=== PATIENT | male | born 1995 | race African-American/Black ===

== ENCOUNTER 2019-12-01 16:34 | Emergency (ER) | payer MEDICAID ==
[~2019-12-01] VITALS: Ht 180.3 cm; Wt 79.0 kg
[2019-12-01 16:50] VITALS: BP 137/82
[2019-12-01] MEDS ORDERED: IBUPROFEN 600MG TABLET PO ONE (17:15)
== END 2019-12-01 18:30 | disposition home or self-care (01) ==
LOC: ER 16:34
DX: S60.212A Contusion of left wrist, initial encounter (principal); S69.92XA Unspecified injury of left wrist, hand and finger(s), initial encounter; V18.0XXA Pedal cycle driver injured in noncollision transport accident in nontraffic accident, initial encounter; Y93.55 Activity, bike riding; Y92.89 Other specified places as the place of occurrence of the external cause
CPT/HCPCS: 29125; 73110; 73130; 99284

== ENCOUNTER 2020-05-30 11:36 | Emergency (ER) | payer MEDICAID ==
[~2020-05-30] VITALS: Ht 182.9 cm; Wt 78.0 kg
[2020-05-30] MEDS ORDERED: ONDANSETRON HCL 4MG/2ML INJ IV STA (12:07)
[2020-05-30] MEDS ORDERED: SODIUM CHLORIDE 0.9% 1,000 ML IV ONE (12:15)
[2020-05-30 13:08] LABS: BASOPHILS % 0.2 % (0.0-2.0); HEMOGLOBIN. 14.6 g/dL (14.0-18.0); LYMPHOCYTES % 8.2 % (20.0-50.0); MEAN CORPUSCULAR HEMOGLOBIN 30.8 pg (28.0-32.0); MEAN CORPUSCULAR VOLUME 86.2 fL (80.0-94.0); MEAN PLATELET VOLUME 9.6 fl (7.4-10.4); MONOCYTES % 10.3 % (2.0-8.0); NEUTROPHILS % 81.3 % (40.0-76.0); PLATELET 122 x1000/uL (130-400); RED BLOOD CELL COUNT 4.76 mill/uL (4.7-6.1); RED CELL DISTRIBUTION WIDTH 13.4 % (11.6-14.6)
[2020-05-30 13:17] LABS: CHLORIDE 99 mEq/L (98-107)
[2020-05-30] MEDS ORDERED: POTASSIUM CHLORIDE 20MEQ TABLET SR PO ONE (13:45)
[2020-05-30] MEDS ORDERED: VANCOMYCIN 1 G PREMIX 200 ML IV ONE (13:45)
[2020-05-30] MEDS ORDERED: PIPERACILLIN/TAZ 3.375G PREMIX 50 ML IV ONE (13:45)
[2020-05-30] MEDS ORDERED: ONDANSETRON HCL 4MG/2ML INJ IV PRN (16:30)
[2020-05-30] MEDS ORDERED: DOCUSATE SODIUM 100MG CAPSULE PO PRN (16:30)
[2020-05-30] MEDS ORDERED: MAGNESIUM/ALUMINUM HYDROXIDE/SIMETHICONE 30ML UDC PO PRN (16:30)
[2020-05-30] MEDS ORDERED: LORAZEPAM 0.5MG TABLET PO PRN (16:30)
[2020-05-30] MEDS ORDERED: HYDROCODONE/ACETAMINOPHEN 5/325MG TABLET PO PRN (16:30)
[2020-05-30] MEDS ORDERED: CEFTRIAXONE 1 G PREMIX 50 ML IV SCH (16:30)
[2020-05-30] MEDS ORDERED: AZITHROMYCIN 500 MG in DEXT 5% WATER 250 ML IV SCH (16:30)
[2020-05-30] MEDS ORDERED: SODIUM CHLORIDE 0.9% 1,000 ML IV SCH (16:30)
[2020-05-30] MEDS ORDERED: ACETAMINOPHEN 325MG TABLET PO PRN ×2 (16:30)
[2020-05-30] MEDS ORDERED: CLONIDINE 0.1MG TABLET PO PRN (16:30)
[2020-05-30] MEDS ORDERED: CLINDAMYCIN 900 MG in DEXTROSE 5% WATER 50 ML IV SCH (17:30)
[2020-05-30 18:03] VITALS: BP 122/80
[2020-05-30 19:44] LABS: CLARITY URINE CLEAR (CLEAR); COLOR URINE DARK YELLOW (YELLOW); KETONES URINE 1+ (NEGATIVE); LEUKOCYTE ESTERASE URINE TRACE (NEGATIVE); NITRITE URINE NEGATIVE (NEGATIVE); OCCULT BLOOD URINE TRACE (NEGATIVE); PROTEIN URINE 2+ (NEGATIVE); SPECIFIC GRAVITY URINE 1.035 (1.005-1.030)
[2020-05-30 19:57] LABS: *BARBITURATES SCREEN URINE NEGATIVE (NEGATIVE); *BENZODIAZEPINES SCREEN URINE NEGATIVE (NEGATIVE); *COCAINE SCREEN URINE NEGATIVE (NEGATIVE)
[2020-05-30 19:58] LABS: *AMPHETAMINES SCREEN URINE NEGATIVE (NEGATIVE); CANNABINOID URINE SCREEN PRESUMTIVE POSITIVE (NEGATIVE); METHADONE URINE SCREEN NEGATIVE (NEGATIVE); OPIATES URINE SCREEN NEGATIVE (NEGATIVE); PHENCYCLIDINE URINE SCREEN NEGATIVE (NEGATIVE)
== END 2020-05-30 18:04 | disposition left against medical advice (07) ==
LOC: ER 12:06 → CANRESERV 16:32 → ENRESERV 16:32 → ER 18:04 → CANBEDREQ 19:20
DX: A41.9 Sepsis, unspecified organism (principal); R65.20 Severe sepsis without septic shock; R11.2 Nausea with vomiting, unspecified; R19.7 Diarrhea, unspecified; R53.1 Weakness; F12.10 Cannabis abuse, uncomplicated; Z20.822 Contact with and (suspected) exposure to COVID-19
CPT/HCPCS: 36415; 71045; 80053; 80305; 81003; 83605; 83880; 84145; 84484; 85025; 85379; 87040; 87086; 93005; 96365; 96366; 96367; 96375; 99291; C9803; J0456; J2405; J2543; J3370; J7030; J7060; U0003; Z7610; J3490